=== PATIENT | male | born 1955 | race Caucasian/White ===

== ENCOUNTER → 2016-08-23 | Outpatient (CLI) | payer OTHER ==
[~2016-08-23] MED LIST: ACETAMINOPHEN325 MG PO; ALBUTEROL0.83 MG/ML INH; ANEXSIA 7.5/3251 TA1 PO; ARTIFICIAL TEAR15 M9 OU; ASPIRIN81 M2 PO; BUPIVACAIN TOP; CELEBREX; CITALOPRAM HBR40 MG PO; COMBIVENT MININEB INH; CYMBALTA30 M1 PO; DOXYCYCLINE HY100 M3 PO; EFFIENT10 MG PO; FERRO-TIME325 MG PO; FERROUS SULFAT325 MG PO; FLEXERIL10 M1 PO; FLOMAX0.4 M1 DOB; FLONASE ALLERG9.9 ML; FLOVENT DI50 MCG/DIS IH; GABAPENTIN300 M2 PO; GABAPENTIN300 MG PO; LEVAQUIN750 MG PO; LEVOTHROID100 MC1 PO; LEVOTHYROXINE100 MCG PO; LIPITOR40 MG PO; LISINOPRIL; LISINOPRIL10 MG PO; LISINOPRIL20 MG PO; LOPRESSOR PO; METOPROLOL SUCC25 MG PO; MONTELUKAST SOD10 MG PO; NEURONTIN100 MG PO; NEURONTIN300 MG PO; NITROGLYGERIN0.4 MG SL; NITROSTAT0.4 MG SL; OXYCODON HCL-1 UDTAB PO; OXYCONTIN40 MG PO; PARAFON FORTE500 MG PO; PRIMATENE MIST; ROCALTROL0.5 MC1 PO; SENSIPAR60 MG PO; SODIUM BICARBO650 MG PO; SYMBICORT INH; TIROSINT100 MCG PO; TYLOX 5/500 CAP1 CAP; VANCOMYCIN HCL1 GM IM; VERAMYST10 GM NS; ZYVOX600 MG PO; [UNRECOGNIZED DRUG - SUPPLY]
[2016-08-23 11:20] LABS: HEMATOCRIT 31.7 % (38.0-50.0); HEMOGLOBIN 10.5 gm/dL (13.0-16.0)
== END | disposition home or self-care (01) ==
LOC: CSSDAY 10:59
PROVIDERS: Internal Medicine Nephrology
DX: N18.9 Chronic kidney disease, unspecified (principal); D63.1 Anemia in chronic kidney disease; Z79.899 Other long term (current) drug therapy
CPT/HCPCS: 36415; 85014; 85018; 96372; J0885

== ENCOUNTER → 2016-09-07 | Outpatient (CLI) | payer OTHER ==
[2016-09-07 12:01] LABS: HEMATOCRIT 29.1 % (38.0-50.0); HEMOGLOBIN 9.4 gm/dL (13.0-16.0)
== END | disposition home or self-care (01) ==
LOC: CSSDAY 10:59
PROVIDERS: Internal Medicine Nephrology
DX: N18.4 Chronic kidney disease, stage 4 (severe) (principal); D63.1 Anemia in chronic kidney disease; Z79.899 Other long term (current) drug therapy
CPT/HCPCS: 36415; 85014; 85018; 96372; J0885

== ENCOUNTER → 2016-09-20 | Outpatient (CLI) | payer OTHER ==
[2016-09-20 11:32] LABS: HEMATOCRIT 27.5 % (38.0-50.0); HEMOGLOBIN 9.1 gm/dL (13.0-16.0)
== END | disposition home or self-care (01) ==
LOC: CLAB 11:04
PROVIDERS: Internal Medicine Nephrology
DX: N18.4 Chronic kidney disease, stage 4 (severe) (principal); D63.1 Anemia in chronic kidney disease; Z79.899 Other long term (current) drug therapy
CPT/HCPCS: 36415; 85014; 85018; 96372; J0885

== ENCOUNTER → 2016-10-04 | Outpatient (CLI) | payer OTHER ==
[2016-10-04 11:48] LABS: HEMATOCRIT 24.8 % (38.0-50.0); HEMOGLOBIN 8.2 gm/dL (13.0-16.0)
== END | disposition home or self-care (01) ==
LOC: CLAB 11:22
PROVIDERS: Internal Medicine Nephrology
DX: N18.4 Chronic kidney disease, stage 4 (severe) (principal); D63.1 Anemia in chronic kidney disease; Z79.899 Other long term (current) drug therapy
CPT/HCPCS: 36415; 85014; 85018; 96372; J0885

== ENCOUNTER → 2016-10-17 | Outpatient (CLI) | payer OTHER ==
[2016-10-17 12:01] LABS: BASOPHIL# 0.1 X10e3 (0-0.3); BASOPHIL% 1.1 % (0-2.5); DIFF IND YES; EOSINOPHIL# 0.3 X10e3 (0-0.7); EOSINOPHIL% 4.6 % (0.0-7.0); HEMATOCRIT 22.2 % (38.0-50.0); HEMOGLOBIN 7.4 gm/dL (13.0-16.0); LYMPHOCYTE# 1.4 X10e3 (1.0-3.5); LYMPHOCYTE% 25.6 % (17.0-45.0); MEAN CELL VOLUME 96.8 FL (83-96); MEAN CORPUSCULAR HEMOGLOBIN 32.4 PG (28-34); MEAN CORPUSCULAR HGB CONC 33.4 g/dL (30-36); MEAN PLATELET VOLUME 6.1 FL (6.5-11.5); MONOCYTE# 0.5 X10e3 (0-1.0); MONOCYTE% 9.9 % (3.0-12.0); NEUTROPHIL# 3.2 X10e3 (1.5-7.1); NEUTROPHIL% 58.8 % (40-75); PLATELET COUNT 272 X10e3 (140-420); RED BLOOD COUNT 2.29 X10e (3.90-5.60); RED CELL DISTRIBUTION WIDTH 16.4 % (11.0-15.5); WHITE BLOOD COUNT 5.5 X10e3 (4.0-10.5)
[2016-10-17 12:37] LABS: PLATELET ESTIMATE NORMAL (NORMAL)
[2016-10-17 12:38] LABS: ANISOCYTOSIS MOD; HYPOCHROMIA MOD
[2016-10-17 12:55] LABS: BUN/CREATININE RATIO 12.46; CALCIUM SERUM 9.6 mg/dL (8.4-10.2); CREATININE SERUM 6.9 mg/dL (0.6-1.4); GLOM FILT RATE Estimated 7.9 mL/min (>60); PHOSPHOROUS 5.9 mg/dL (2.5-4.6); POTASSIUM 4.3 mmol/L (3.5-5.1)
[2016-10-24 05:16] LABS: CALCIUM (PTHINTACT) 9.7 mg/dL (8.6-10.3)
== END | disposition home or self-care (01) ==
LOC: CSSDAY 11:11
PROVIDERS: Internal Medicine Nephrology
DX: N18.4 Chronic kidney disease, stage 4 (severe) (principal); D63.1 Anemia in chronic kidney disease; Z79.899 Other long term (current) drug therapy
CPT/HCPCS: 36415; 80048; 82306; 82310; 82652; 82728; 83540; 83970; 84100; 85025; 96372; J0885

== ENCOUNTER → 2016-11-15 | Outpatient (CLI) | payer OTHER ==
[2016-11-15 13:45] LABS: HEMATOCRIT 32.6 % (38.0-50.0); HEMOGLOBIN 10.6 gm/dL (13.0-16.0)
== END | disposition home or self-care (01) ==
LOC: CSSDAY 13:00
PROVIDERS: Internal Medicine Nephrology
DX: N18.4 Chronic kidney disease, stage 4 (severe) (principal); D63.1 Anemia in chronic kidney disease
CPT/HCPCS: 36415; 85014; 85018; 96372; J0885

== ENCOUNTER → 2016-11-23 | Outpatient (CLI) | payer OTHER ==
[2016-11-23 14:16] LABS: BASOPHIL# 0.1 X10e3 (0-0.3); BASOPHIL% 1.1 % (0-2.5); EOSINOPHIL# 0.4 X10e3 (0-0.7); EOSINOPHIL% 4.6 % (0.0-7.0); HEMATOCRIT 33.3 % (38.0-50.0); HEMOGLOBIN 10.8 gm/dL (13.0-16.0); LYMPHOCYTE# 1.6 X10e3 (1.0-3.5); LYMPHOCYTE% 19.6 % (17.0-45.0); MEAN CELL VOLUME 94.5 FL (83-96); MEAN CORPUSCULAR HEMOGLOBIN 30.7 PG (28-34); MEAN CORPUSCULAR HGB CONC 32.5 g/dL (30-36); MONOCYTE# 0.7 X10e3 (0-1.0); MONOCYTE% 8.1 % (3.0-12.0); NEUTROPHIL# 5.6 X10e3 (1.5-7.1); NEUTROPHIL% 66.6 % (40-75); PLATELET COUNT 286 X10e3 (140-420); RED BLOOD COUNT 3.53 X10e (3.90-5.60); RED CELL DISTRIBUTION WIDTH 17.4 % (11.0-15.5); WHITE BLOOD COUNT 8.4 X10e3 (4.0-10.5)
[2016-11-23 14:22] LABS: DIFF IND NO
[2016-11-23 15:00] LABS: BUN/CREATININE RATIO 12.5; CALCIUM SERUM 10.5 mg/dL (8.4-10.2); CREATININE SERUM 5.2 mg/dL (0.6-1.4); GLOM FILT RATE Estimated 11.1 mL/min (>60); PHOSPHOROUS 4.6 mg/dL (2.5-4.6); POTASSIUM 4.8 mmol/L (3.5-5.1)
[2016-12-01 10:58] LABS: CALCIUM (PTHINTACT) 10.6 mg/dL (8.6-10.3)
== END | disposition home or self-care (01) ==
LOC: CLAB 13:09
PROVIDERS: Internal Medicine Nephrology
DX: N18.5 Chronic kidney disease, stage 5 (principal); N25.81 Secondary hyperparathyroidism of renal origin; D63.1 Anemia in chronic kidney disease
CPT/HCPCS: 36415; 80048; 82306; 82310; 82652; 82728; 83540; 83970; 84100; 85025

== ENCOUNTER → 2016-11-28 | Outpatient (CLI) | payer OTHER ==
[2016-11-28 12:10] LABS: HEMATOCRIT 31.4 % (38.0-50.0); HEMOGLOBIN 10.1 gm/dL (13.0-16.0)
== END | disposition home or self-care (01) ==
LOC: CSSDAY 08:00
PROVIDERS: Internal Medicine Nephrology
DX: N18.4 Chronic kidney disease, stage 4 (severe) (principal); D63.1 Anemia in chronic kidney disease; Z79.899 Other long term (current) drug therapy
CPT/HCPCS: 36415; 85014; 85018; 96372; J0885

== ENCOUNTER → 2016-12-12 | Outpatient (CLI) | payer OTHER ==
[2016-12-12 13:27] LABS: HEMATOCRIT 29.7 % (38.0-50.0); HEMOGLOBIN 9.8 gm/dL (13.0-16.0)
== END | disposition home or self-care (01) ==
LOC: CSSDAY 13:00
PROVIDERS: Internal Medicine Nephrology
DX: N18.4 Chronic kidney disease, stage 4 (severe) (principal); D63.1 Anemia in chronic kidney disease; Z79.899 Other long term (current) drug therapy
CPT/HCPCS: 36415; 85014; 85018; 96372; J0885

== ENCOUNTER → 2017-01-23 | Outpatient (CLI) | payer OTHER ==
[2017-01-23 12:02] LABS: HEMATOCRIT 28.5 % (38.0-50.0); HEMOGLOBIN 9.5 gm/dL (13.0-16.0)
== END | disposition home or self-care (01) ==
LOC: CSSDAY 09:00
PROVIDERS: Internal Medicine Nephrology
DX: N18.4 Chronic kidney disease, stage 4 (severe) (principal); D63.1 Anemia in chronic kidney disease; Z79.899 Other long term (current) drug therapy
CPT/HCPCS: 36415; 85014; 85018; 96372; J0885

== ENCOUNTER → 2017-02-06 | Outpatient (CLI) | payer OTHER ==
[2017-02-06 13:50] LABS: HEMATOCRIT 31.4 % (38.0-50.0); HEMOGLOBIN 10.6 gm/dL (13.0-16.0)
== END | disposition home or self-care (01) ==
LOC: CSSDAY 08:00
PROVIDERS: Internal Medicine Nephrology
DX: N18.4 Chronic kidney disease, stage 4 (severe) (principal); D63.1 Anemia in chronic kidney disease
CPT/HCPCS: 36415; 85014; 85018; 96372; J0885

== ENCOUNTER → 2017-02-21 | Outpatient (CLI) | payer OTHER ==
[2017-02-21 14:25] LABS: BASOPHIL# 0.1 X10e3 (0-0.3); BASOPHIL% 1.2 % (0-2.5); EOSINOPHIL# 0.2 X10e3 (0-0.7); EOSINOPHIL% 3.1 % (0.0-7.0); HEMATOCRIT 31.3 % (38.0-50.0); HEMOGLOBIN 10.4 gm/dL (13.0-16.0); LYMPHOCYTE% 30.2 % (17.0-45.0); MEAN CELL VOLUME 98.3 FL (83-96); MEAN CORPUSCULAR HEMOGLOBIN 32.8 PG (28-34); MEAN CORPUSCULAR HGB CONC 33.3 g/dL (30-36); MEAN PLATELET VOLUME 5.9 FL (6.5-11.5); MONOCYTE# 0.4 X10e3 (0-1.0); MONOCYTE% 6.4 % (3.0-12.0); NEUTROPHIL% 59.1 % (40-75); PLATELET COUNT 288 X10e3 (140-420); RED BLOOD COUNT 3.18 X10e (3.90-5.60); WHITE BLOOD COUNT 6.8 X10e3 (4.0-10.5)
[2017-02-21 14:26] LABS: DIFF IND NO
[2017-02-21 14:47] LABS: BUN/CREATININE RATIO 11.83; CALCIUM SERUM 10.7 mg/dL (8.4-10.2); GLOM FILT RATE Estimated 9.3 mL/min (>60); PHOSPHOROUS 5.6 mg/dL (2.5-4.6); POTASSIUM 4.5 mmol/L (3.5-5.1)
[2017-02-24 02:16] LABS: CALCIUM (PTHINTACT) 10.8 mg/dL (8.6-10.3)
== END | disposition home or self-care (01) ==
LOC: CSSDAY 08:00 → CLAB 13:32
PROVIDERS: Internal Medicine Nephrology
DX: N18.5 Chronic kidney disease, stage 5 (principal); D63.1 Anemia in chronic kidney disease; Z79.899 Other long term (current) drug therapy
CPT/HCPCS: 36415; 80048; 82310; 83970; 84100; 85025; 96372; J0885